=== PATIENT | male | born 1945 | race Caucasian/White ===

== ENCOUNTER → 2016-10-06 | Outpatient (CLI) | payer OTHER, BC ==
[~2016-10-06] MED LIST: ASPI81TA21 PO; CLB/200 PO; CLOP1TAB5 PO; DBT/5 PO; HYDR25TA4 PO; LISI40TA PO; METF850T PO; METO-551 PO; NORCO; OXYC1TAB3 PO; SIMV10TA2 PO; ZOLP1TAB PO
[2016-10-06 13:35] LABS: ESTIMATED AVERAGE GLUCOSE 151 mg/dl; HA1C FLAG Normal (Normal)
[2016-10-06 13:38] LABS: BLOOD UREA NITROGEN 22 mg/dl (7-18); BUN/CREATININE RATIO 17.2 (10-20); CALCIUM 9.1 mg/dl (8.5-10.1); CARBON DIOXIDE 26 mmol/L (21-32); CHLORIDE 105 mmol/L (98-107); GLUCOSE 171 mg/dl (70-99); POTASSIUM 4.1 mmol/L (3.5-5.1); SODIUM 141 mmol/L (136-145)
[2016-10-06 13:39] LABS: PHOSPHORUS 3.2 mg/dl (2.5-4.9)
== END | disposition home or self-care (01) ==
LOC: C.LABMFLN 09:10
PROVIDERS: ATTEND Family Medicine
DX: E11.9 Type 2 diabetes mellitus without complications (principal)

== ENCOUNTER → 2017-01-08 | Outpatient (CLI) | payer OTHER, BC ==
[2017-01-08 13:43] LABS: BASO % 0.8 %; BASO ABS # 0.06 K/uL (0-0.2); COMPLETE YES; EOS % 2.1 %; HEMATOCRIT 38.6 % (42-52); IG% 0.3 %; LYMPH % 28.5 %; LYMPH ABS # 2.26 K/uL (1.2-3.4); MEAN CELL VOLUME 84.3 fL (80-100); MEAN CORPUSCULAR HEMOGLOBIN 30.6 pg (25-34); MEAN CORPUSCULAR HGB CONC 36.3 g/dl (32-36); MEAN PLATELET VOLUME 11.1 fL (7.4-10.4); MONO % 6.9 %; NEUT % 61.4 %; PLATELET COUNT 159 K/uL (130-400); RED BLOOD COUNT 4.58 M/uL (4.7-6.1); WHITE BLOOD COUNT 7.92 K/uL (4.8-10.8)
[2017-01-08 14:04] LABS: ESTIMATED AVERAGE GLUCOSE 157 mg/dl; HA1C FLAG Normal (Normal)
[2017-01-08 14:16] LABS: ALT/SGPT 30 U/L (12-78); BLOOD UREA NITROGEN 24 mg/dl (7-18); CARBON DIOXIDE 27 mmol/L (21-32); CHLORIDE 103 mmol/L (98-107); CHOLESTEROL 101 mg/dl (0-200); GLUCOSE 171 mg/dl (70-99); POTASSIUM 3.9 mmol/L (3.5-5.1); SODIUM 139 mmol/L (136-145)
[2017-01-08 14:27] LABS: ALB/GLOB RATIO 1.2 (0.9-2); ALKALINE PHOSPHATASE 75 U/L (45-117); AST/SGOT 20 U/L (15-37); CHOLESTEROL/HDL RATIO 2.3; HDL CHOLESTEROL 44 mg/dl; LDL CHOLESTEROL CALCULATED 31 mg/dl; THYROID STIMULATING HORMONE 0.777 uIu/ml (0.300-4.500); TRIGLYCERIDES 130 mg/dl (0-150); VERY LOW DENSITY LIPOPROT CALC 26 mg/dl
[2017-01-08 14:39] LABS: RATIO 64.7 mcg/mg (0-30.0)
== END | disposition home or self-care (01) ==
LOC: C.LABMFLN 08:18
PROVIDERS: ATTEND Family Medicine
DX: E11.9 Type 2 diabetes mellitus without complications (principal); I10 Essential (primary) hypertension; E78.5 Hyperlipidemia, unspecified

== ENCOUNTER → 2017-04-20 | Outpatient (CLI) | payer OTHER, BC ==
[2017-04-20 14:02] LABS: ESTIMATED AVERAGE GLUCOSE 148 mg/dl; HA1C FLAG Normal (Normal)
[2017-04-20 14:12] LABS: BLOOD UREA NITROGEN 26 mg/dl (7-18); BUN/CREATININE RATIO 21.3 (10-20); CALCIUM 9.1 mg/dl (8.5-10.1); CARBON DIOXIDE 30 mmol/L (21-32); CHLORIDE 103 mmol/L (98-107); GLUCOSE 105 mg/dl (70-99); PHOSPHORUS 3.5 mg/dl (2.5-4.9); POTASSIUM 4.3 mmol/L (3.5-5.1); SODIUM 138 mmol/L (136-145)
== END | disposition home or self-care (01) ==
LOC: C.LABMFLN 09:44
PROVIDERS: ATTEND Family Medicine
DX: E11.9 Type 2 diabetes mellitus without complications (principal)

== ENCOUNTER → 2017-07-20 | Outpatient (CLI) | payer OTHER, BC ==
[2017-07-20 15:11] LABS: ESTIMATED AVERAGE GLUCOSE 157 mg/dl; HA1C FLAG Normal (Normal)
[2017-07-20 16:18] LABS: BLOOD UREA NITROGEN 25 mg/dl (7-18); BUN/CREATININE RATIO 22.2 (10-20); CALCIUM 9.4 mg/dl (8.5-10.1); CARBON DIOXIDE 26 mmol/L (21-32); CHLORIDE 104 mmol/L (98-107); CREATININE 1.12 mg/dl (0.60-1.40); GLUCOSE 135 mg/dl (70-99); PHOSPHORUS 3.2 mg/dl (2.5-4.9); POTASSIUM 3.5 mmol/L (3.5-5.1); SODIUM 139 mmol/L (136-145)
== END | disposition home or self-care (01) ==
LOC: C.LABMFLN 10:46
PROVIDERS: ATTEND Family Medicine
DX: E11.9 Type 2 diabetes mellitus without complications (principal)

== ENCOUNTER → 2017-10-21 | Outpatient (CLI) | payer OTHER, BC ==
[2017-10-21 12:48] LABS: HEMOGLOBIN A1C 7.1 % (4.5-5.6)
[2017-10-21 13:15] LABS: ALBUMIN 4.2 gm/dl (3.4-5.0); BLOOD UREA NITROGEN 27 mg/dl (7-18); CALCIUM 9.1 mg/dl (8.5-10.1); CARBON DIOXIDE 28 mmol/L (21-32); CREATININE 1.37 mg/dl (0.60-1.40); GLUCOSE 167 mg/dl (70-99); PHOSPHORUS 2.9 mg/dl (2.5-4.9); POTASSIUM 4.2 mmol/L (3.5-5.1); SODIUM 136 mmol/L (136-145)
== END | disposition home or self-care (01) ==
LOC: C.LABMFLN 10:27
PROVIDERS: ATTEND Family Medicine
DX: E11.9 Type 2 diabetes mellitus without complications (principal); M51.26 Other intervertebral disc displacement, lumbar region; J30.9 Allergic rhinitis, unspecified

== ENCOUNTER → 2018-05-05 | Outpatient (CLI) | payer OTHER, BC ==
[~2018-05-05] MED LIST changes: +ASPI-319 PO; -ASPI81TA21 PO; +OXYC-737 PO; -OXYC1TAB3 PO
[2018-05-05 13:12] LABS: BASO % 0.6 %; BASO ABS # 0.04 K/uL (0-0.2); EOS % 3.2 %; EOS ABS # 0.22 K/uL (0-0.5); HEMATOCRIT 39.4 % (42-52); HEMOGLOBIN 13.5 g/dL (14.0-18.0); LYMPH % 36.7 %; LYMPH ABS # 2.49 K/uL (1.2-3.4); MEAN CELL VOLUME 87.8 fL (80-100); MEAN CORPUSCULAR HEMOGLOBIN 30.1 pg (25-34); MEAN CORPUSCULAR HGB CONC 34.3 g/dl (32-36); MEAN PLATELET VOLUME 11.7 fL (7.4-10.4); MONO % 6.3 %; MONO ABS # 0.43 K/uL (0.11-0.59); NEUT % 53.2 %; PLATELET COUNT 149 K/uL (130-400); RED CELL DISTRIBUTION WIDTH CV 13.4 % (11.5-14.5); RED CELL DISTRIBUTION WIDTH SD 42.8 fL (36.4-46.3); WHITE BLOOD COUNT 6.78 K/uL (4.8-10.8)
[2018-05-05 13:52] LABS: BLOOD UREA NITROGEN 19 mg/dl (7-18); CALCIUM 8.4 mg/dl (8.5-10.1); CARBON DIOXIDE 26 mmol/L (21-32); CREATININE 1.14 mg/dl (0.60-1.40); GLUCOSE 111 mg/dl (70-99); PHOSPHORUS 2.9 mg/dl (2.5-4.9); POTASSIUM 4.1 mmol/L (3.5-5.1); SODIUM 139 mmol/L (136-145)
== END | disposition home or self-care (01) ==
LOC: C.LABMFLN 10:22
PROVIDERS: ATTEND Family Medicine
DX: E11.9 Type 2 diabetes mellitus without complications (principal)

== ENCOUNTER 2025-07-26 08:19 | Observation (INO) ==
--- NOTE | 2025-06-28 08:48 | PAT Medication Instructions ---
Medication Instructions Date of Service June 28, 2025 Home Medications Medication Instructions Recorded blood-glucose meter (OneTouch #1 ea 07/08/23 Ultra2 Meter) lancets 33 gauge (OneTouch Delica #100 ea 04/11/25 Plus Lancet) blood sugar diagnostic (OneTouch #100 ea 04/12/25 Ultra Test strips) metformin 500 mg tablet,extended 500 mg PO BID #180 tabs 04/17/25 release 24 hr zolpidem 10 mg tablet 10 mg PO HS PRN insomnia #90 tabs 04/25/25 simvastatin 10 mg tablet 10 mg PO QPM #90 tabs 05/08/25 gabapentin 100 mg capsule 100 mg PO TID #270 caps 05/09/25 gabapentin 300 mg capsule 300 mg PO TID #270 caps 05/09/25 hydrocodone 7.5 mg-acetaminophen 1 tab PO QID PRN pain #100 tabs 05/29/25 325 mg tablet pen needle, diabetic 32 gauge x #100 ea 05/29/25" metformin 500 mg tablet,extended release 24 hr 500 mg PO BID zolpidem 10 mg tablet 10 mg PO HS PRN insomnia simvastatin 10 mg tablet 10 mg PO QPM gabapentin 100 mg capsule 100 mg PO TID gabapentin 300 mg capsule 300 mg PO TID hydrocodone 7.5 mg-acetaminophen 325 mg tablet 1 tab PO QID PRN pain amlodipine 10 mg tablet 10 mg PO QAM celecoxib 200 mg capsule (Celebrex) 200 mg PO QAM clopidogrel 75 mg tablet 75 mg PO QAM empagliflozin 25 mg tablet (Jardiance) 25 mg PO QAM furosemide 20 mg tablet 20 mg PO QAM glyburide 5 mg tablet 2.5 - 5 mg PO UD insulin glargine 100 unit/mL (3 mL) subcutaneous pen (Lantus Solostar U-100 Insulin) 25 unit subcut HS lisinopril 40 mg tablet 40 mg PO QAM metoprolol tartrate 50 mg tablet 25 mg PO BID semaglutide 0.25 mg or 0.5 mg (2 mg/3 mL) subcutaneous pen injector (Ozempic) 0.5 mg subcut Q7D ASK your surgeon for instructions celecoxib 200 mg capsule (Celebrex) 200 mg PO QAM ASK your prescriber and surgeon clopidogrel/Plavix 75 mg tablet 75 mg PO QAM (From anesthesia perspective, Clopidogrel/Plavix is requested to be stopped 7 before surgery. Please check if okay with doctor that prescribes this to you) STOP 7 days prior to surgery semaglutide 0.25 mg or 0.5 mg (2 mg/3 mL) subcutaneous pen injector (Ozempic) 0.5 mg subcut Q7D STOP taking 3 days before surgery empagliflozin 25 mg tablet (Jardiance) 25 mg PO QAM DO NOT take the morning of surgery metformin 500 mg tablet,extended release 24 hr 500 mg PO BID furosemide 20 mg tablet 20 mg PO QAM glyburide 5 mg tablet 2.5 - 5 mg PO UD lisinopril 40 mg tablet 40 mg PO QAM Take morning of surgery With a small sip of water, OTHERWISE NOTHING TO EAT OR DRINK AFTER MIDNIGHT: gabapentin 100 mg capsule 100 mg PO TID gabapentin 300 mg capsule 300 mg PO TID hydrocodone 7.5 mg-acetaminophen 325 mg tablet 1 tab PO QID PRN pain (if needed) amlodipine 10 mg tablet 10 mg PO QAM metoprolol tartrate 50 mg tablet 25 mg PO BID Take evening before surgery metformin 500 mg tablet,extended release 24 hr 500 mg PO BID zolpidem 10 mg tablet 10 mg PO HS PRN insomnia (if needed) simvastatin 10 mg tablet 10 mg PO QPM gabapentin 100 mg capsule 100 mg PO TID gabapentin 300 mg capsule 300 mg PO TID hydrocodone 7.5 mg-acetaminophen 325 mg tablet 1 tab PO QID PRN pain (if needed) glyburide 5 mg tablet 2.5 - 5 mg PO UD insulin glargine 100 unit/mL (3 mL) subcutaneous pen (Lantus Solostar U-100 Insulin) 25 unit subcut HS metoprolol tartrate 50 mg tablet 25 mg PO BID Other Notes If you have any questions please call us at [phone] or [phone] or [phone] or [phone]
--- NOTE | 2025-07-05 13:34 | Anesthesiology Consultation ---
Date of Service July 05, 2025 Assessment & Plan (1) Encounter for pre-operative examination: Plan - check BSG am DOS. - cardiology pre-operative evaluation 07/12/25 [place]: "...currently stable and asymptomatic from a cardiovascular standpoint with no anginal symptoms occurring at >4 METS of activity. He has no evidence of CHF or significant valvular abnormality. His preop ECG showed a bifascicular block but he is not having any symptoms to suggest high grade AV block. He is therefore at an acceptable risk to proceed with upcoming surgery without any additional cardiovascular testing or intervention..." - PCP pre-operative evaluation 07/10/25 [place]: "...Labs reviewed. Not medically optimized until seen by cardiology on 07/12/25..." - patient will need cardiology clearance for new bifascicular block. I spoke with patient who states he does not have a cardiology preference. Surgeon's office made aware. Both are aware cardiology clearance is needed even if cleared by PCP 07/10. - semaglutide instructions: Patient informed at PAT visit to stop 7 days prior to surgery- voiced understanding. Patient advised to check with prescriber to see if alternative diabetic management changes recommended while holding semaglutide-if so, patient to call back to PAT to update chart and discuss if any further preop medication instructions needed. - Outpatient joint assessment: Patient is currently scheduled for inpatient pathway. If re-evaluated and patient/surgeon requests outpatient pathway, patient is not a candidate for outpatient joint program. Chart Review Chart Review: Acceptable Risk for Surgery and Patient seen in Pre Admission Testing Teaching & Discussion Pre-Anesthesia Teaching/Discussion Notes: Instructed NPO after midnight before surgery, except medications with 15 cc of water. Medication instructions provided according to the PAT guidelines. History Surgery Operation Date: 07/26/25 07:15 Proposed Procedures p Right Total Knee Arthroplasty - Félix Macdonald MD Height/Weight Height: 5 ft 10 in Weight: 88.3 kg Allergies Allergy/AdvReac Type Severity Reaction Status Date / Time No Known Allergies Allergy Verified 07/12/25 13:38 Medications Home Medications Medication Instructions Recorded Confirmed Last Taken blood-glucose meter (OneTouch #1 ea 07/08/23 07/12/25 Unknown Ultra2 Meter) lancets 33 gauge (OneTouch Delica #100 ea 04/11/25 07/12/25 Unknown Plus Lancet) blood sugar diagnostic (OneTouch #100 ea 04/12/25 07/12/25 Unknown Ultra Test strips) metformin 500 mg tablet,extended 500 mg PO BID #180 tabs 04/17/25 07/12/25 Unknown release 24 hr zolpidem 10 mg tablet 10 mg PO HS PRN insomnia #90 tabs 04/25/25 07/12/25 Unknown simvastatin 10 mg tablet 10 mg PO QPM #90 tabs 05/08/25 07/12/25 Unknown gabapentin 100 mg capsule 100 mg PO TID #270 caps 05/09/25 07/12/25 Unknown gabapentin 300 mg capsule 300 mg PO TID #270 caps 05/09/25 07/12/25 Unknown pen needle, diabetic 32 gauge x #100 ea 05/29/25 07/12/25 Unknown " amlodipine 10 mg tablet 10 mg PO QAM 06/26/25 07/12/25 Unknown celecoxib 200 mg capsule (Celebrex) 200 mg PO QAM 06/26/25 07/12/25 Unknown clopidogrel 75 mg tablet 75 mg PO QAM 06/26/25 07/12/25 Unknown empagliflozin 25 mg tablet 25 mg PO QAM 06/26/25 07/12/25 Unknown (Jardiance) furosemide 20 mg tablet 20 mg PO QAM 06/26/25 07/12/25 Unknown glyburide 5 mg tablet 2.5 - 5 mg PO UD 06/26/25 07/12/25 Unknown insulin glargine 100 unit/mL (3 25 unit subcut HS 06/26/25 07/12/25 Unknown mL) subcutaneous pen (Lantus Solostar U-100 Insulin) lisinopril 40 mg tablet 40 mg PO QAM 06/26/25 07/12/25 Unknown metoprolol tartrate 50 mg tablet 25 mg PO BID 06/26/25 07/12/25 Unknown semaglutide 0.25 mg or 0.5 mg (2 0.5 mg subcut Q7D 06/26/25 07/12/25 Unknown mg/3 mL) subcutaneous pen injector (Ozempic) hydrocodone 7.5 mg-acetaminophen 1 tab PO QID PRN pain #100 tabs 06/29/25 07/12/25 Unknown 325 mg tablet Past Medical History Medical History (Updated 07/05/25 @ 14:05 by Brit Thomason PA-C) Benign essential hypertension controlled, stable per pt Chronic insomnia Diabetes mellitus, type 2 History of stroke (~2000) ~1999 or 2000, no residual effects "other than my equilibrium is off a little bit occasionally" HLD (hyperlipidemia) Hx of migraines "years ago" Patient denies h/o seizures, heart attack, heart failure, DVT/PEs or blood transfusions. Exercise / Class Metabolic Activity II 4-5 Yardwork/Stairs/Walk up hill (denies chest discomfort or shortness of breath with one flight of stairs) Past Family History Family History Father Laryngeal cancer Mother Family history of cervical cancer Coronary heart disease Hypertension Myocardial infarction Hx of CABG Past Surgical History Surgical History H/O colonoscopy 05/20/10 History of cataract surgery rt/lt History of lumbar spinal fusion (2011) lower back, hardware present History of Mohs micrographic surgery for skin cancer removed from legs, back, arm, head History of removal of cyst lower back Hx of thumb surgery rt thumb "to remove arthritis" S/P cholecystectomy laparoscopic Past Anesthesia History No Hx of Anesthesia Complications and No Family Hx of Anesthesia Complications History of PONV No Hx of PONV and No Hx of Motion Sickness Social History Smoking Status: Former smoker tobacco type: cigarettes Do You Dip or Chew Tobacco: No Smoking End Date: 1972 Hx Alcohol Use: Yes (none for at least 20 years) Hx Substance Use: No substance use type: does not use Review of Systems Patient denies chest pain, shortness of breath, dyspnea on exertion, reflux, fever, chills, cough, wheezing, or palpitations. Physical Exam Vital Signs Vitals BP 122/65 P 69 TEMP 97.9 SP02 97% on RA RESP 18 Physical Patient resting comfortably in chair in no acute distress, alert and oriented, responding appropriately throughout visit Full cervical extension range of motion without pain TMD 3.5 finger breadths Mallampati Score 2 Dentition: broken front upper tooth, denies loose teeth, caps/crowns, implants or bridges Lungs: normal respiratory effort. Good air movement, clear throughout to auscultation, no adventitious breath sounds Cardiac: regular rate and rhythm, no murmurs noted Carotid arteries: negative bruit bilat Lab Results Anesthesia Preop Results Results Anesthesia Widget: WBC 8.33 K/ul (4.8-10.8) 07/05/25 Hgb 15.5 g/dl (14.0-18.0) 07/05/25 Hct 44.2 % (42.0-52.0) 07/05/25 Plt 156 K/uL (130-400) 07/05/25 Na 138 mmol/L (136-145) 07/05/25 K 4.3 mmol/L (3.5-5.1) 07/05/25 Cl 104 mmol/L (98-107) 07/05/25 CO2 28 mmol/L (21-32) 07/05/25 BUN 28 mg/dl (6-23) H 07/05/25 Creat 1.16 mg/dl (0.6-1.4) 07/05/25 Glucose Level 78 mg/dl (70-99(Fasting)) 07/05/25 PT 10.9 Seconds (9.0-12.0) 07/05/25 PTT 27 Seconds (21-31) 07/05/25 INR 1.0 (0.9-1.1) 07/05/25 HA1c 6.8 % (4.5-5.6) H 07/05/25 Urine Color Yellow 07/05/25 Urine Appearance Clear (Clear) 07/05/25 Urine pH 5.5 (4.5-7.5) 07/05/25 Urine Specific [place] 1.023 (1.000-1.030) 07/05/25 Urine Protein Trace (Negative) H 07/05/25 Urine Glucose (UA) 3+ (Negative) H 07/05/25 Urine Ketones Negative (Negative) 07/05/25 Urine Blood Negative (Negative) 07/05/25 Urine Nitrite Negative (Negative) 07/05/25 Urine Bilirubin Negative (Negative) 07/05/25 Urine Urobilinogen Negative (Negative) 07/05/25 Urine Leukocyte Esterase Negative (Negative) 07/05/25 Urine WBC (Auto) 0-5 /hpf (0-5) 07/05/25 Urine RBC (Auto) 0-2 /hpf (0-2) 07/05/25 Urine Hyaline Casts (Auto) 0-2 /lpf (0-2) 07/05/25 Urine Epithelial Cells (Auto) 0-2 /hpf (0-2) 07/05/25 Urine Bacteria (Auto) None Seen (None Seen) 07/05/25 Blood Type A Negative 07/05/25 Antibody Screen NEGATIVE 07/05/25 Testing Electrocardiogram Date: 07/05/25 NSR, rate 67 bpm RBBB Left anterior fascicular block Bifascicular block Minimal voltage criteria for LVH, may be normal variant Chest X-Ray Date: 07/05/25 Heart size and pulmonary vasculature are normal. No consolidation or pleural effusion. IMPRESSION: No acute findings.
--- NOTE | 2025-07-25 20:52 | History & Physical Report ---
Date of Service July 25, 2025 Assessment & Plan (1) Osteoarthritis of right knee: Plan: Right knee osteoarthritis and synovitis and probable lateral meniscus tear. Patient likely has there is a grade 4 osteoarthritis with the lateral joint space narrowing he has radiographically. Patient failed conservative management including aspiration injection steroid and bracing and exercise program. Plan is to proceed with total knee replacement. Osteoarthritis type: primary Qualified Code(s): M17.11 - Unilateral primary osteoarthritis, right knee History of Present Illness Primary Care Provider: Rosana Miranda DO Patient denies headaches, sweats, fevers, chills, double vision, blurred vision, cough, sore throat, dysphagia, chest pain, sob, wheezing, n/v/d/c, numbness, tingling, fatigue, urinary symptoms, mood disorders. ROS positive for stroke history with minor equilibrium issues some shortness of breath with activity. Allergies Allergy/AdvReac Type Severity Reaction Status Date / Time No Known Allergies Allergy Verified 07/12/25 13:38 Home Medications Medication Instructions Recorded Confirmed Type blood-glucose meter (OneTouch #1 ea 07/08/23 07/12/25 Rx Ultra2 Meter) lancets 33 gauge (OneTouch Delica #100 ea 04/11/25 07/12/25 Rx Plus Lancet) blood sugar diagnostic (OneTouch #100 ea 04/12/25 07/12/25 Rx Ultra Test strips) metformin 500 mg tablet,extended 500 mg PO BID #180 tabs 04/17/25 07/12/25 Rx release 24 hr simvastatin 10 mg tablet 10 mg PO QPM #90 tabs 05/08/25 07/12/25 Rx gabapentin 100 mg capsule 100 mg PO TID #270 caps 05/09/25 07/12/25 Rx gabapentin 300 mg capsule 300 mg PO TID #270 caps 05/09/25 07/12/25 Rx pen needle, diabetic 32 gauge x #100 ea 05/29/25 07/12/25 Rx 5/32" amlodipine 10 mg tablet 10 mg PO QAM 06/26/25 07/12/25 History celecoxib 200 mg capsule (Celebrex) 200 mg PO QAM 06/26/25 07/12/25 History empagliflozin 25 mg tablet 25 mg PO QAM 06/26/25 07/12/25 History (Jardiance) furosemide 20 mg tablet 20 mg PO QAM 06/26/25 07/12/25 History glyburide 5 mg tablet 2.5 - 5 mg PO UD 06/26/25 07/12/25 History insulin glargine 100 unit/mL (3 25 unit subcut HS 06/26/25 07/12/25 History mL) subcutaneous pen (Lantus Solostar U-100 Insulin) lisinopril 40 mg tablet 40 mg PO QAM 06/26/25 07/12/25 History metoprolol tartrate 50 mg tablet 25 mg PO BID 06/26/25 07/12/25 History semaglutide 0.25 mg or 0.5 mg (2 0.5 mg subcut Q7D 06/26/25 07/12/25 History mg/3 mL) subcutaneous pen injector (Ozempic) zolpidem 10 mg tablet 10 mg PO HS PRN insomnia #90 tabs 07/20/25 Rx clopidogrel 75 mg tablet 75 mg PO QAM #90 tabs 07/24/25 Rx hydrocodone 7.5 mg-acetaminophen 1 tab PO QID PRN pain #100 tabs 07/24/25 Rx 325 mg tablet Past Med/Surg History Problem List (Updated 07/25/25 @ 20:57 by Félix Macdonald MD) Osteoarthritis of right knee Encounter for pre-operative examination Tendinopathy [facility] arthritis Osteoarthritis Left shoulder pain Plantar fasciitis of left foot Paresthesia of both feet High risk medication use History of back surgery Allergic rhinitis (Chronic) Benign essential hypertension (Chronic) Lumbar disc disease (Chronic) Chronic insomnia (Chronic) Diabetes mellitus (Chronic) History of stroke (Chronic) Hyperlipidemia (Chronic) Pain syndrome, chronic (Chronic) Proteinuria (Chronic) Medical History Hx of migraines "years ago" History of stroke (~2000) ~1999 or 2000, no residual effects "other than my equilibrium is off a little bit occasionally" HLD (hyperlipidemia) Diabetes mellitus, type 2 Chronic insomnia Benign essential hypertension controlled, stable per pt Surgical History Hx of thumb surgery rt thumb "to remove arthritis" History of lumbar spinal fusion (2011) lower back, hardware present History of Mohs micrographic surgery for skin cancer removed from legs, back, arm, head History of removal of cyst lower back History of cataract surgery rt/lt S/P cholecystectomy laparoscopic H/O colonoscopy 05/20/10 Family History Father Laryngeal cancer Mother Family history of cervical cancer Coronary heart disease Hypertension Myocardial infarction Hx of CABG Social History Smoking Status: Former smoker Tobacco Type: Declines Age Started Using Tobacco: 21; Age Quit Using Tobacco: 26; packs per day: 1; Smoking End Date: 1972; Second Hand Exposure: No; Do You Dip or Chew Tobacco: No; Tobacco Cessation Education Requested by Patient: No Hx Alcohol Use: Yes (none for at least 20 years) Hx Substance Use: No Preferred Language: Georgian Communication Ability: Effective Visual Impairment: No Limitations Hearing Ability: Normal Appeals Officer Required: No Beliefs That Will Affect Care: None marital status: Current Living Situation: Spouse current occupational status: retired current occupation: still drives for [employer] Other Information That Helps Us Care for You: No Feels Safe at Home: Yes Safety Concerns: Feels Safe At This Time Childhood Exposure to Second-Hand Smoke: Yes (father smoked) Diet: diabetic and low carbohydrate caffeine: Yes (coffee/ hot tea occasionally) Dental Care, Regularly: No Physical Activity Frequency: Daily Physical Activity Frequency Comment: 5 miles Seatbelt Use: always Sunscreen Use: No Do you think of yourself as: straight/heterosexual Assistive Devices: Glasses Review of Systems All systems reviewed & are unremarkable except as noted in HPI & below Physical Exam Constitutional: WD/WN, vitals as above Respiratory: normal respiratory effort; no respiratory distress Cardiovascular: Rate/Rhythm: regular rate and regular rhythm Musculoskeletal: Right knee with valgus alignment moderate effusion moderate swelling painful range of motion 0 through 120 degrees range of motion normal strength normal neurovascular exam. Skin: no rashes, warm and dry Neurologic: normal touch/pain/proprioception Psychiatric: A+Ox3, euthymic affect Results & Data Diagnostic Findings Right knee with patellofemoral and lateral compartment osteoarthritis with a valgus knee and lateral joint space narrowing with only a millimeter or 2 of joint space remaining.
[~2025-07-26 08:19] MED LIST changes: -ASPI-319 PO; +BUPIVACAINE 0.25% PF 30 ML VIAL ONE; +BUPIVACAINE 0.5 % 5 MG/1 ML PF 10ML VIAL ONE; -CLB/200 PO; -CLOP1TAB5 PO; -DBT/5 PO; -HYDR25TA4 PO; -LISI40TA PO; -METF850T PO; -METO-551 PO; -NORCO; -OXYC-737 PO; +PROPOFOL IV EMULSION 10 MG/ML 100 ML VIAL IV ONE; -SIMV10TA2 PO; -ZOLP1TAB PO
[2025-07-26] MEDS ORDERED: MIDAZOLAM HCL 1 MG/ML 2ML VIAL ONE (08:26)
[2025-07-26] MEDS ORDERED: LIDOCAINE 2% 2 ML VIAL/AMP(20MG/ML) INFIL ONE (08:26)
[2025-07-26] MEDS: CeleBREX 200 MG CAP PO SCH (08:45)
[2025-07-26] MEDS: ACETAMINOPHEN 500 MG TAB PO SCH ×2 (08:45→17:09)
[2025-07-26] MEDS: LR 60ML/HR IV SCH (08:46)
[2025-07-26] MEDS: FAMOTIDINE 20 MG TAB PO SCH (08:46)
[2025-07-26] MEDS: METOCLOPRAMIDE HCL 10 MG TABLET PO SCH (08:46)
[2025-07-26] MEDS: GABAPENTIN 300 MG CAP PO SCH ×2 (08:47→17:14)
[2025-07-26] MEDS: LR 500ML BOLUS, THEN 15ML/HR IV SCH (09:02)
[2025-07-26] MEDS ORDERED: ATROPINE SULFATE 0.1 MG/ML 10ML SYR IV PRN (09:56)
[2025-07-26] MEDS ORDERED: ONDANSETRON INJ 2 MG/ML 2 ML VIAL IV PRN ×2 (09:56→16:11)
--- NOTE | 2025-07-26 09:56 | History & Physical Bridge Note ---
Date of Service July 26, 2025 History & Physical Bridge Note I have examined the patient, reviewed the History & Physical and in the interval since the performance of the History & Physical I have noted the following changes of clinical significance: no changes noted
[2025-07-26] MEDS: TRANEXAMIC ACID 1,000 MG **IV Pre-op IV SCH (10:12)
[2025-07-26] MEDS ORDERED: ONDANSETRON INJ 2 MG/ML 2 ML VIAL ONE (11:02)
[2025-07-26] MEDS: ROPIVACAINE 0.5% HCL/PF 246 MG, Ketorolac (*for OR use only*) 30 MG in SODIUM CHLORIDE ... INFIL SCH (11:16)
[2025-07-26] MEDS: ORTHO JOINT ANESTHETIC ONE (11:17)
[2025-07-26] MEDS ORDERED: ePHEDrine sulfate 50 MG/5 ML SYR ONE (12:47)
--- NOTE | 2025-07-26 13:16 | Operative Report ---
Post Operative Report Pre & Post Diagnosis Operation Date: 07/26/25 10:20 Pre-Op Diagnosis: Osteoarthritis of right knee with patellofemoral malalignment and lateral compartment osteoarthritis and patellofemoral osteoarthritis with probable lateral meniscus tear Post-Op Diagnosis: Osteoarthritis of right knee with patellofemoral malalignment and lateral compartment osteoarthritis grade 4 and degenerative lateral meniscus tear with extrusion. I identified the patient and participated in the time-out.: Yes Procedure Operation Date: 07/26/25 10:20 Actual Procedures p Right Total Knee Arthroplasty(Right) application of a jesse and Acticoat superficial wound VAC.- Félix Macdonald MD Surgeon Félix Macdonald MD [employer] Anibal CAIN Estimated Blood Loss 5 Findings Consistent with Post-Op Diagnosis Specimens Bone cuts Drains 2 Hemovac Anesthesia Type MAC Spinal Regional Complications none Disposition Disposition: Recovery Room Indications 79-year-old male with progressive valgus deformity of his knee with osteoarthritis patellofemoral joint and lateral compartment with lateral joint space narrowing and exam consistent with grade 4 osteoarthritis lateral compart ment and a lateral meniscus tear. Failed conservative management. Description of Procedure patient was taken to the operating room and anesthetized under spinal MAC regional block anesthesia. Patient placed supine on the operating table and the right lower extremity was examined which demonstrated a valgus knee with a 10 degree flexion contracture and flexion to 120 degrees. There was a moderately large knee effusion. There was minimal pseudolaxity. The right lower extremity was prepped and draped in usual sterile fashion with ChloraPrep. The leg was elevated exsanguinated with an Esmarch bandage and pneumatic tourniquet was raised to 300 millimeters of mercury. A longitudinal incision was made across the knee. Skin incised sharply and subcutaneous flaps were elevated. An incision was made through the medial retinaculum and extended up into the mid third of the quadriceps tendon and down along the medial tibial tubercle. Intra -articular findings demonstrated grade 4 osteoarthritis the lateral compartment eburnated bone on the femur. More of a wear pattern on the flexion surface than the extension surface on the tibial plateau and a degenerative tear of the lateral meniscus with extrusion laterally. There was also patellofemoral malalignment and patellofemoral arthritis.. knee was exposed by excising the menisci and cruciate ligaments and a portion of the infrapatellar fat pad and the fat pad over the anterior femur just proximal to the articular cartilage for placement of the component in that area. The lateral synovial bands were released. The femur was exposed. The custom femoral cutting guide based on CT preoperative templating was placed onto the femur and pinned in position. The drill holes were made to match the epicondylar axis. The distal femoral cut was made. The anterior and posterior chamfer cuts were then made after applying the distal femoral cutting guide. This guide was sized for a 6 right component. The knee was extended and a subperiosteal peel lateral release was made around the patella and then the patella width was measured and the width was reproduced using a freehand cut technique using the oscillating saw. The 35 x 10 mm asymmetric patella component was chosen. 3 drill holes were made for the pegs. Any excess lateral facet was beveled off to prevent any impingement laterally. The tibia was then exposed. The custom CT generated tibial guide size 6 was adjusted into maximum external rotation and pinned in position and the punch for the stem was used. Tibial guide was removed and then the femoral notch cutting guide was centered pinned in position and the femoral notch was made with the oscillating saw. The trial femoral component size 6 was impacted onto the femur with appropriate fit. The drill holes for the femoral lugs were made. Trial tibial bearing and tray inserts were placed and size 9 mm bearing size 6 was appropriate fit with stability through full range of motion. The trials were removed and the orthomix injection was placed per protocol. The wound was then copiously irrigated with pulsatile saline solution irrigating all soft tissues and bony surfaces. The final components were cemented with methylmethacrylate cement which was vacuum mixed. Final components were [place] triathlon posterior stabilized right size 6 femoral component with distal fixation pegs, a size 6 triathlon primary tibial baseplate with a 9 mm X.3 polyethylene bearing insert for the tibia and a 35 x 10 mm asymmetric X.3 polyethylene patella. some Xperience irrigation was placed over the tibial tray prior to replacement of the tibial polyethylene. after cement cured the patella tracking was assessed and the patella tracked centrally. 2 Hemovac drains were placed. These were brought out laterally. The distal quadriceps tendon and medial retinaculum were repaired with interrupted [id number] #2 FiberWire sutures and the apex of the quadriceps split proximally was closed with a [id number] #2 FiberWire suture and another #2 FiberWire sutures placed at the level of the tibial polyethylene. A 0 strata fix running locking suture was used to repair the quadriceps tendon and medial retinaculum from the apex down to the inferior pole of the patella and below that level interrupted #1 Vicryl sutures were utilized to close the medial retinaculum. The knee was taken through full range of motion and the repair was secure. The subcutaneous tissues were then closed up to 2 oh-0 Vicryl sutures and the skin was closed with surgical liyah. A jesse and Acticoat superficial wound VAC was applied. My physician care assistant, Anibal CAIN acted as photography assistant assisted in patient positioning, prepping, draping, soft tissue retraction instrument management wound closure, Application of jesse and Acticoat superficial wound VAC and will participate in postop care of the patient. Im ordering collagen sheets as a primary dressing and bordered super absorbent for secondary dressings for the wound resulting from this surgery. Collagen is being utilized to encourage the growth of blood vessels and granulation tissue. The collagen will also speed up the wound healing process, increase skin tensile strength at the surgery site and lessen the chance of a wound dehiscence, help prevent infection, and reduce the appearance of scarring. The silicone secondary dressings will protect the wound and help keep it clean and minimize that chances for infection. I believe that this treatment protocol is medically necessary to help facilitate the best outcome possible for my patient. I attest to the content of the Intraoperative Record and any orders documented therein. Any exceptions are noted below.
--- NOTE | 2025-07-26 13:55 | XRay Report ---
XR knee RT 1 or 2V routine CLINICAL HISTORY: Surgical Post Op COMPARISON: None FINDINGS: There are postsurgical changes of a total right knee arthroplasty and patellar resurfacing . There are overlying skin liyah and surgical drains. There is air within soft tissues consistent w ith recent surgery. IMPRESSION: Postsurgical changes of a total right knee arthroplasty. ACT 112: Negative or not required by law. Electronically signed by: Rogelio Slade M.D. 07/26/2025 1:53 PM
--- NOTE | 2025-07-26 15:39 | Anesthesiology Progress Note ---
Date of Service July 26, 2025 Anesthesia Post Procedure Vital Signs Vital Signs: Temp Pulse Pulse Resp BP Pulse Ox O2 Del Method 07/26/25 15:30 60 20 130/71 96 Room Air 07/26/25 15:15 58 L 20 142/69 H 96 Room Air 07/26/25 15:00 57 L 18 147/73 H 96 Room Air 07/26/25 14:45 59 L 17 126/67 96 Room Air 07/26/25 14:30 36.8 C 62 20 131/76 97 Room Air 07/26/25 14:20 55 L 17 142/74 H 94 Room Air 07/26/25 14:10 57 L 14 135/67 96 Room Air 07/26/25 14:00 56 L 17 135/73 95 Room Air 07/26/25 13:50 57 L 17 140/65 97 Room Air 07/26/25 13:40 59 L 16 127/72 98 Room Air 07/26/25 13:30 60 8 L 134/73 94 Room Air 07/26/25 13:20 63 20 140/75 94 Room Air 07/26/25 13:10 61 18 130/72 96 Room Air 07/26/25 13:02 36.1 C L 65 22 127/75 98 Room Air 07/26/25 08:36 36.5 C 63 20 163/85 H 97 Room Air Transfer of Care Handoff Completed per policy Notes Mental Status: alert / awake / arousable Patient Amnestic to Procedure: Yes Nausea / Vomiting: adequately controlled Pain: adequately controlled Airway Patency, RR, SpO2: stable & adequate BP & HR: stable & adequate Hydration State: stable & adequate Neuraxial Anesthesia: was administered and sensory block is resolving Anesthetic Complications: no major complications apparent and Pt Satisfied with anesthetic care
[2025-07-26] MEDS ORDERED: PHARMACY GLYCEMIC MGMT CONSULT PRN (16:11)
[2025-07-26] MEDS ORDERED: diphenhydrAMINE Capsule 25 MG CAP PO PRN (16:11)
[2025-07-26] MEDS ORDERED: NALOXONE HCL 0.4 MG/1 ML VIAL/CARP IV PRN (16:11)
[2025-07-26] MEDS ORDERED: ZOLPIDEM TARTRATE 5 MG TAB PO PRN (16:11)
[2025-07-26] MEDS ORDERED: METOCLOPRAMIDE HCL INJ 5 MG/ML 2 ML VIAL IV PRN (16:11)
[2025-07-26] MEDS ORDERED: MAGNESIUM HYDROXIDE SUSP 30 ML UDC PO PRN (16:11)
[2025-07-26] MEDS ORDERED: ALUMINUM/MAGNESIUM SUSP 30 ML UDC PO PRN (16:11)
[2025-07-26] MEDS: SODIUM CHLORIDE 0.9% 1,000 ML IV SCH (17:09)
[2025-07-26] MEDS: GABAPENTIN 100 MG CAP PO SCH (17:14)
[2025-07-26] MEDS ORDERED: CARBOHYDRATES FOR HYPOGLYCEMIA PO PRN (17:15)
[2025-07-26] MEDS ORDERED: GLUCOSE 40% GEL 15 GM TUBE PO PRN (17:15)
[2025-07-26] MEDS ORDERED: GLUCAGON FOR INJ 1 MG VIAL SQ PRN (17:15)
[2025-07-26] MEDS ORDERED: DEXTROSE 50% 50 ML SYRINGE IV PRN (17:15)
[2025-07-26] MEDS ORDERED: GLUCOSE 10 TAB/TUBE PO PRN (17:15)
[2025-07-26] MEDS: INSULIN ASPART PER UNIT CHARGE SC SCH (17:27)
[2025-07-26] MEDS: TRANEXAMIC ACID / 0.7% NACL 1,000 MG/100 ML BAG IV SCH (18:31)
--- NOTE | 2025-07-26 18:42 | Pharmacy Report ---
Pharmacy Glycemic Short Note 2 - Date of Service July 26, 2025 - Glycemic Short BSG Results (Last 24 hours): 07/26/25 07/26/25 07/26/25 08:41 14:46 16:17 POC Glucose 123 H 89 69 L* 07/26/25 07/26/25 16:20 17:01 POC Glucose 64 L* 100 H OUTPATIENT ANTIDIABETIC REGIMEN: * empagliflozin 25mg PO daily * glyburide 2.5mg PO qAM, 5mg HS * Lantus 25 units SQ HS * metformin 500mg PO BID * semaglutide 0.5mg SQ weekly HbA1C: 6.8% ASSESSMENT: * Pt is a 79 YOM POD #0 right total knee arthroplasty. History of DM2 on multiple PO and SQ diabetes medications at home. Pharmacy consulted to assist with inpatient glycemic management. * BSGs trending down since admission: 123-89-69mg/dL (required hypoglycemia treatment this evening). * Diet ordered, dexamethasone 10mg IV X 1 dose ordered tomorrow. * Will initiate Novolog ACHS moderate scale for now. Plan to hold basal today given BSGs low. Reassess basal in AM. PLAN FOR INPATIENT GLYCEMIC CONTROL: * Hold outpatient oral diabetes medications * Basal insulin * hold * Bolus insulin * NovoLog per scale ACHS or Q6hrs while NPO * Goal Range: Low 110 mg/dL - High 140 mg/dL * Correction Factor: 30 mg/dL/unit * Nutritional / Prandial insulin per carb ratio of 1 unit per 11 grams CHO consumed
[2025-07-26 18:49] VITALS: TEMP 97.9
[2025-07-26] MEDS: KETOROLAC TROMETHAMINE 15 MG/ML VIAL IV PRN (19:56)
[2025-07-26] MEDS: METOPROLOL TARTRATE 25 MG TAB PO SCH (20:54)
[2025-07-26] MEDS: DOCUSATE SODIUM 100 MG CAP PO SCH (20:54)
[2025-07-26] MEDS: SENNA 8.6 MG TAB PO SCH (20:54)
[2025-07-26] MEDS: SIMVASTATIN 10 MG TAB PO SCH (20:56)
[2025-07-26] MEDS ORDERED: NON-FORMULARY MEDICATION (Insulin Glargine [Lantus Solostar U-100 Insulin] 100 unit/mL (3 SQ SCH (21:00)
[2025-07-26] MEDS: HYDROmorphone INJ 0.5 MG/0.5 ML SYR IV PRN (23:08)
[2025-07-27 07:40] LABS: Hematocrit (blood only) 38.6 % (42.0-52.0); Hemoglobin 13.1 g/dl (14.0-18.0); Mean Corpuscular Hemoglobin 30.8 pg (25.0-34.0); Mean Corpuscular Volume 90.6 fL (80.0-100.0); Platelet Count 125 K/uL (130-400); RDW Standard Deviation 41.1 fL (36.4-46.3); Red Blood Count 4.26 M/uL (4.70-6.10); White Blood Count 7.19 K/ul (4.8-10.8)
[2025-07-27 07:55] LABS: Anion Gap 7.0 (3-11); Blood Urea Nitrogen 19.0 mg/dl (6-23); Calcium 8.5 mg/dl (8.6-10.3); Carbon Dioxide 27.0 mmol/L (21-32); Chloride 105.0 mmol/L (98-107); Creatinine Clr Calc Pharmacy 67.2 ml/min; Glucose 137.0 mg/dl (70-99(Fasting)); Potassium 4.1 mmol/L (3.5-5.1); Sodium 139.0 mmol/L (136-145)
--- NOTE | 2025-07-27 08:10 | Orthopedic Progress Note ---
Date of Service July 27, 2025 Assessment & Plan (1) Osteoarthritis of right knee: Plan: Postop day 1 right knee replacement. Patient doing well. Plans to discharge home he will go to [facility] physical therapy. Drain can be discontinued today prior to discharge. Patient can be discharged home today. Follow-up in 2 weeks for staple removal. Sudheer Acticoat instructions. Right knee osteoarthritis and synovitis and probable lateral meniscus tear. Patient likely has there is a grade 4 osteoarthritis with the lateral joint space narrowing he has radiographically. Patient failed conservative management including aspiration injection steroid and bracing and exercise program. Plan is to proceed with total knee replacement. Admission and Anticipated Discharge Date Admission Date: July 26, 2025 Subjective Minor pain. Review of Systems Review of Systems: No chest pain shortness of breath feels well Physical Exam Musculoskeletal: Dressing dry and intact independent straight leg raise distal circulation sensorimotor exam intact. Results & Data Vital Signs (Past 12 Hours) Vital Signs Temp Pulse Resp BP BP Pulse Ox O2 Del Method 07/27/25 07:18 36.6 C 68 168/72 H 94 Room Air 07/27/25 03:28 36.6 C 60 16 154/73 H 95 Room Air 07/26/25 23:25 36.6 C 72 18 152/71 H 96 Room Air 07/26/25 21:47 36.6 C 78 18 166/84 H 96 Room Air Diagnostic Findings Satisfactory alignment total knee replacement right knee (1) Osteoarthritis of right knee Osteoarthritis type: primary Qualified Code(s): M17.11 - Unilateral primary osteoarthritis, right knee
[2025-07-27] MEDS: dexAMETHasone 10 MG in SYRINGE 0 ML IV SCH (08:19)
[2025-07-27] MEDS: ASPIRIN 81 MG ECTAB PO SCH (08:20)
[2025-07-27] MEDS: FUROSEMIDE 20 MG TAB PO SCH (08:20)
[2025-07-27] MEDS: CLOPIDOGREL BISULFATE 75 MG TAB PO SCH (08:20)
[2025-07-27] MEDS: MULTIVITAMIN TAB PO SCH (08:21)
[2025-07-27] MEDS ORDERED: EMPAGLIFLOZIN 25 MG TAB PO SCH (09:00)
[2025-07-27] MEDS: LANTUS PER UNIT CHARGE SC SCH (09:02)
[2025-07-27 11:29] VITALS: BP 166/82; PULSE 69; RESP 18; O2SAT 97
== END 2025-07-27 13:53 | disposition home health service (06) ==
LOC: ASU 08:19 → 3N 08:19